=== PATIENT | female | born 1940 | race Two or more races ===

== ENCOUNTER 2022-01-29 18:16 | Inpatient (IN) | payer MEDICARE, OTHER ==
[~2022-01-29] VITALS: Ht 152.4 cm; Wt 52.6 kg
[2022-01-29] MEDS ORDERED: ACET-2154 PO (18:57)
[2022-01-29] MEDS ORDERED: ASPI81TA31 PO (18:57)
[2022-01-29] MEDS ORDERED: AMLO10TA59 PO (18:57)
[2022-01-29] MEDS ORDERED: MULT-594 PO (18:57)
[2022-01-29] MEDS ORDERED: ACET-73 PO (18:57)
[2022-01-29] MEDS ORDERED: ATOR40TA PO (18:57)
[2022-01-29] MEDS ORDERED: ASCO500C18 PO (18:57)
[2022-01-29] MEDS ORDERED: FLUO10CA29 PO (18:57)
[2022-01-29] MEDS ORDERED: METF-441 PO (18:57)
[2022-01-29] MEDS ORDERED: INSU100I26 SQ (18:57)
[2022-01-29] MEDS ORDERED: METO-356 PO (18:57)
[2022-01-29] MEDS ORDERED: CHLO25TA2 PO (18:57)
[2022-01-29] MEDS ORDERED: VITAMIN D PO (18:57)
[2022-01-29 19:51] LABS: *BILIRUBIN,URIN NEGATIVE (NEGATIVE); *BLOOD, URINE TRACE (NEGATIVE); *CLARITY,URINE SLIGHTLY CLOUDY (CLEAR); *COLOR,URINE YELLOW (YELLOW); *KETONES,URINE NEGATIVE (NEGATIVE); *UROBILINOGEN,URINE 0.2 E.U./dl (NORMAL); LEUKOCYTE ESTERASE ,URINE 1+ (NEGATIVE); NITRITE, URINE NEGATIVE (NEGATIVE); PH,URINE 5.5 (5.0-8.0); UGLUCOSE NEGATIVE (NEGATIVE)
[2022-01-29 21:36] LABS: CARBON DIOXIDE 20 mmol/L (21-32); CHLORIDE 104 mmol/L (98-107); CREATININE 1.9 mg/dL (0.6-1.3); GLUCOSE 208 mg/dL (74-106); UREA NITROGEN, BLOOD 49 mg/dL (7-18)
[2022-01-29 21:39] LABS: MEAN CORPUSCULAR HEMOGLOBIN 27.4 uug (24.7-32.8); MEAN CORPUSCULAR VOLUME 84.6 fL (75.5-95.3); PLATELET COUNT (AUTO) 251 K/uL (179-408)
[2022-01-29 21:43] LABS: ACETAMINOPHEN < 2.0 ug/mL (10-30); ALANINE AMINOTRANSFERASE 29 U/L (14-59); ALKALINE PHOSPHATASE 154 U/L (50-136); ASPARTATE AMINOTRANSFERASE 22 U/L (15-37); BILIRUBIN,DIRECT 0.1 mg/dL (0.0-0.2); BILIRUBIN,TOTAL 0.4 mg/dL (0.2-1.0); TOTAL PROTEIN, SERUM 7.7 g/dL (6.4-8.2)
[2022-01-29 21:45] LABS: ETHANOL < 3 MG/DL (0-0)
--- NOTE | 2022-01-29 23:24 | NUR ---
Spoke with Esther from crisis team.
[2022-01-29] MEDS ORDERED: NITROFURANTOIN/NITROFURAN MAC 100 MG CAPSULE PO ONE (23:30)
--- NOTE | 2022-01-30 01:25 | NUR ---
Esther from PET team here to eval patient.
--- NOTE | 2022-01-30 01:57 | NUR ---
report given to twin SINGH
[2022-01-30] MEDS ORDERED: BLOOD SUGAR DIAGNOSTIC 1 EACH STRIP VI ONE (03:45)
[2022-01-30] MEDS ORDERED: MAGNESIUM HYDROXIDE 30 ML LIQUID UDC PO PRN (03:45)
[2022-01-30 04:00] VITALS: BP 163/61
--- NOTE | 2022-01-30 04:00 | NUR ---
Pt. admitted to MHU room 140 , under care of Dr. Denis and Tyrell Schwarz, GENERAL DUTY NURSE Belongs List completed no s/s of distress breathing even and unlabored ambulates with cane
[2022-01-30 07:07] LABS: ALANINE AMINOTRANSFERASE 21 U/L (14-59); ALKALINE PHOSPHATASE 111 U/L (50-136); ASPARTATE AMINOTRANSFERASE 26 U/L (15-37); BILIRUBIN,TOTAL 0.4 mg/dL (0.2-1.0); CARBON DIOXIDE 22 mmol/L (21-32); CHLORIDE 107 mmol/L (98-107); CHOLESTEROL 129 mg/dL (<200); CREATININE 1.6 mg/dL (0.6-1.3); GLUCOSE 94 mg/dL (74-106); HDL CHOLESTEROL 70 mg/dL (40-60); POTASSIUM 3.7 mmol/L (3.5-5.1); TOTAL PROTEIN, SERUM 6.4 g/dL (6.4-8.2); TRIGLYCERIDES 62 MG/DL (30-150); UREA NITROGEN, BLOOD 43 mg/dL (7-18)
[2022-01-30 07:56] VITALS: BP 190/81
[2022-01-30] MEDS ORDERED: ACETAMINOPHEN ES 500 MG TABLET- SA PATIENTS-PAIN ONLY PO PRN (12:30)
[2022-01-30 15:20] VITALS: BP 179/75
[2022-01-30] MEDS: METFORMIN HCL 850 MG TABLET PO SCH (18:00)
[2022-01-30] MEDS: ATORVASTATIN 40 MG TABLET PO SCH (18:00)
--- NOTE | 2022-01-30 18:20 | NUR ---
GPS: Nursing Notes: Destructive Behavior to Others: Patient is awake and responding to her name, gets easily irritable when redirected by staff, poor anger management, believes that we stole her black jacket, "IF YOU CANNOT FIND IT...YOU NEED TO PAY FOR MY JACKET..", redirected during shift, loud and pressured speech at times, continue to monitor for safety, unable to formulate a viable plan for self care, continue with treatment plan.
[2022-01-30 20:10] VITALS: BP 189/78
[2022-01-30] MEDS: OLANZAPINE 2.5 MG TABLET PO SCH (20:27)
[2022-01-30] MEDS: DIVALPROEX SPRINKLE 125 MG CAP.SPRINK PO SCH (20:27)
[2022-01-30 20:38] LABS: BACTERIA,URINE MA /HPF (NONE SEEN); SQUAMOUS EPITHELIAL CELL,UR FEW /HPF (NONE SEEN)
[2022-01-30] MEDS ORDERED: AMLODIPINE 10 MG TABLET PO ONE (22:00)
--- NOTE | 2022-01-30 22:30 | NUR ---
RECEIVED PATIENT IN HER ROOM SITTING IN A CHAIR. SHE IS NOTED A/O X 1. SHE IS CALM AND PLEASANT UPON APPROACHED. SHE IS A POOR HISTORIAN. POOR INSIGHT AND JUDGMENT IS NOTED INTO HER ADMISSION TO MHU. NO AGGRESSIVE/COMBATIVE BX NOTED AT THIS TIME. MOOD IS LOW, AFFECT IS BLUNTED. SHE DENIED SI/HI/VH/AH. B/P NOTED ELEVATED 189/78MMHG. IT WAS NOTED THAT PATIENT DID NOT GET HER B/P MEDS THIS MORNING D/T HER MEDICATIONS WERE NOT RECONCILED TILL AFTERNOON. DR VEGA WAS NOTIFIED AND NEW ORDER OBTAINED TO ADMINISTER NORVASC 10MG PO ONE TIME ONLY. ORDER NOTED AND CARRIED OUT. PATIENT WAS GIVEN PO FLUIDS AND SNACKS. PATIENT IS REASSURED FOR HER SAFETY, SAFETY AND FALL PRECAUTION ARE IN PLACE. WILL CONTINUE TO MONITOR.
[2022-01-30 23:30] VITALS: BP 142/86
--- NOTE | 2022-01-30 23:30 | NUR ---
PATIENT'S BLOOD PRESSURE IS STABLE 142/82 MMHG AND HR 88. WILL CONTINUE TO MONITOR
--- NOTE | 2022-01-31 07:26 | NUR ---
patient refused blood drawn. multiple redirection given yet ineffective. will continue to monitor.
[2022-01-31 07:30] VITALS: BP 147/93
[2022-01-31] MEDS: CHLORTHALIDONE 25 MG TABLET PO SCH (08:29)
[2022-01-31] MEDS: METFORMIN HCL 850 MG TABLET PO SCH ×2 (08:30→17:05)
[2022-01-31] MEDS: ASPIRIN 81 MG TAB.CHEW PO SCH (08:31)
[2022-01-31] MEDS: METOPROLOL SUCCINATE XL 25 MG TAB.SR.24H PO SCH (08:31)
[2022-01-31] MEDS: CHOLECALCIFEROL 1,000 UNIT TABLET PO SCH (08:32)
[2022-01-31] MEDS: MULTIVITAMINS,THERAPEUTIC TABLET PO SCH (08:32)
[2022-01-31] MEDS: DIVALPROEX SPRINKLE 125 MG CAP.SPRINK PO SCH ×2 (08:32→20:18)
[2022-01-31] MEDS: ASCORBIC ACID 500 MG TABLET PO SCH (08:32)
[2022-01-31] MEDS: AMLODIPINE 10 MG TABLET PO SCH (08:32)
[2022-01-31] MEDS ORDERED: Medication Not On Formulary EA (Ascorbic Acid (Vitamin C) 1 CAP) PO SCH (09:00)
[2022-01-31] MEDS ORDERED: [UNRECOGNIZED DRUG - OTHER] PO SCH (09:00)
[2022-01-31] MEDS ORDERED: FLUOXETINE HCL 10 MG CAPSULE PO SCH (09:00)
[2022-01-31] MEDS ORDERED: Medication Not On Formulary EA (Multivitamins (Multivitamin) 1 TAB) PO SCH (09:00)
--- NOTE | 2022-01-31 15:24 | NUR ---
DIVINA Initial Discharge plan: Pt is admitted to [facility] on a 5150 hold for harm to someone else and be unable to take care of your own food clothing or alf. per pt, she would like to go back to her resident located at [facility] [place] [address] ([phone]). Pt reported to not contact her daughter. DIVINA will continue to be in touch with the facility upon pt's return at discharge. DIVINA will continue to work with pt, family and MD to ensure a safe and proper discharge plan for the pt.
--- NOTE | 2022-01-31 15:24 | NUR ---
SW Admit Source: Pt is admitted to [facility] on a 5150 hold for harm to someone else and be unable to take care of your own food clothing or snf. per pt, she would like to go back to her resident located at [facility] [place] [address] ([phone]). Pt reported to not contact her daughter. SW will continue to be in touch with the facility upon pt's return at discharge. DIVINA will continue to work with pt, family and MD to ensure a safe and proper discharge plan for the pt.
[2022-01-31 16:00] VITALS: BP 150/62
--- NOTE | 2022-01-31 16:00 | NUR ---
Received patient sleeping in her room. A/O X 2 to person, place. Pt. is withdrawn, depressed, isolative, does not interact with others. Compliant with medications. Ambulates with walker. Refuses her blood to be drawn for lab. Pt. is encourage to verbalize concerns. Fall and safety precautions implemented.
[2022-01-31] MEDS: ATORVASTATIN 40 MG TABLET PO SCH (17:04)
[2022-01-31 20:00] VITALS: BP 156/66
[2022-01-31] MEDS: OLANZAPINE 2.5 MG TABLET PO SCH (20:18)
--- NOTE | 2022-01-31 20:30 | NUR ---
RECEIVED PATIENT IN HER ROOM SITTING IN HER BED READING A BOOK. PATIENT IS NOTED A/O X 2, HER MOOD IS IRRITABLE, AFFECT IS BLUNTED. SHE IS NOTED ISOLATIVE. NO AGGRESSIVE/ COMBATIVE BX IS WAS NOTED OR REPORTED AT THIS TIME. SHE DENIED, SI/HI/VH/AH. SHE IS NOTED WITH POOR INSIGHT AND JUDGMENT TO THE REASON FOR HER ADMISSION TO MHU. SHE STATED SHE IS HERE TO SEE THE DOCTOR FOR HER "PAINS". PATIENT IS REASSURED FOR HER SAFETY. SAFETY AND FALL PRECAUTION ARE IN PLACE. V/S STABLE. SHE WAS GIVEN PO FLUIDS AND SNACKS. WILL CONTINUE TO MONITOR.
[2022-02-01] MEDS: DIVALPROEX SPRINKLE 125 MG CAP.SPRINK PO SCH ×2 (08:43→20:03)
[2022-02-01] MEDS: CHOLECALCIFEROL 1,000 UNIT TABLET PO SCH (08:43)
[2022-02-01] MEDS: ASCORBIC ACID 500 MG TABLET PO SCH (08:43)
[2022-02-01] MEDS: MULTIVITAMINS,THERAPEUTIC TABLET PO SCH (08:43)
[2022-02-01] MEDS: ASPIRIN 81 MG TAB.CHEW PO SCH (08:43)
[2022-02-01] MEDS: CHLORTHALIDONE 25 MG TABLET PO SCH (08:45)
[2022-02-01] MEDS: METFORMIN HCL 850 MG TABLET PO SCH ×2 (08:45→17:37)
[2022-02-01] MEDS: FLUOXETINE HCL 20 MG CAPSULE PO SCH (08:50)
[2022-02-01] MEDS: METOPROLOL SUCCINATE XL 25 MG TAB.SR.24H PO SCH (09:04)
[2022-02-01] MEDS: AMLODIPINE 10 MG TABLET PO SCH (09:04)
--- NOTE | 2022-02-01 09:09 | NUR ---
Firearms Report: [employer] completed and submitted a [employer] firearms report for 5150 harm someone else and be unable to take care of your own food clothing or chcf certifications. A copy of report has been placed in patient chart.
[2022-02-01 10:54] VITALS: BP 157/67
[2022-02-01 13:21] LABS: *BILIRUBIN,URIN NEGATIVE (NEGATIVE); *CLARITY,URINE SLIGHTLY CLOUDY (CLEAR); *COLOR,URINE YELLOW (YELLOW); *KETONES,URINE NEGATIVE (NEGATIVE); *UROBILINOGEN,URINE 0.2 E.U./dl (NORMAL); LEUKOCYTE ESTERASE ,URINE 2+ (NEGATIVE); NITRITE, URINE NEGATIVE (NEGATIVE); UGLUCOSE NEGATIVE (NEGATIVE)
[2022-02-01 13:26] LABS: *BLOOD, URINE TRACE (NEGATIVE)
[2022-02-01 13:32] LABS: *AMPHETAMINE, URINE NEGATIVE (NEGATIVE); *CANNABINOID, URINE NEGATIVE (NEGATIVE); *COCCAINE, URINE NEGATIVE (NEGATIVE); *OPIATE, URINE NEGATIVE (NEGATIVE); *PHENCYCLIDINE SCREEN,URINE NEGATIVE (NEGATIVE)
[2022-02-01 13:42] LABS: *URINE TOTAL PROTEIN RANDOM 129.7 mg/dL (<150/24HR); BACTERIA,URINE MANY /HPF (NONE SEEN); RBC,URINE 0-3 /HPF (0-3); SQUAMOUS EPITHELIAL CELL,UR FEW /HPF (NONE SEEN); WBC,URINE 20-50 /HPF (0-3)
--- NOTE | 2022-02-01 15:17 | NUR ---
Pt. is received sleeping in her room. A/O X 3 to person, place. Pt. is labile, refusing blood to be drawn, isolative, withdrawn, quiet. UA was collected this morning. BP was 172/71, Norvasc 10 mg and Metoprolol 25 mg were given as scheduled, BP was 157/67 after an hour, effective. Compliant with medications. Pt. ambulates with walker. Self care. Denies SI/HI AH/VH. Pt. is encourage to verbalize concerns. Fall and safety precautions implemented.
[2022-02-01] MEDS: ATORVASTATIN 40 MG TABLET PO SCH (17:36)
[2022-02-01 20:00] VITALS: BP 140/59
[2022-02-01] MEDS: OLANZAPINE 5 MG TABLET PO SCH (20:04)
[2022-02-02 07:35] VITALS: BP 117/72
[2022-02-02 07:51] LABS: HEMATOCRIT 28.3 % (31.2-41.9); MEAN CORPUSCULAR HEMOGLOBIN 28.3 uug (24.7-32.8); PLATELET COUNT (AUTO) 208 K/uL (179-408)
[2022-02-02 08:01] LABS: ALANINE AMINOTRANSFERASE 20 U/L (14-59); ALKALINE PHOSPHATASE 94 U/L (50-136); ASPARTATE AMINOTRANSFERASE 15 U/L (15-37); BILIRUBIN,TOTAL 0.5 mg/dL (0.2-1.0); CARBON DIOXIDE 23 mmol/L (21-32); CHLORIDE 109 mmol/L (98-107); CREATINE KINASE, TOTAL 37 U/L (26-192); CREATININE 1.8 mg/dL (0.6-1.3); GLUCOSE 106 mg/dL (74-106); MAGNESIUM 1.8 mg/dL (1.8-2.4); PHOSPHOROUS 4.5 mg/dL (2.5-4.9); POTASSIUM 4.6 mmol/L (3.5-5.1); TOTAL PROTEIN, SERUM 6.5 g/dL (6.4-8.2); UREA NITROGEN, BLOOD 51 mg/dL (7-18)
[2022-02-02] MEDS: ASPIRIN 81 MG TAB.CHEW PO SCH (08:40)
[2022-02-02] MEDS: FLUOXETINE HCL 20 MG CAPSULE PO SCH (08:40)
[2022-02-02] MEDS: CHOLECALCIFEROL 1,000 UNIT TABLET PO SCH (08:40)
[2022-02-02] MEDS: MULTIVITAMINS,THERAPEUTIC TABLET PO SCH (08:41)
[2022-02-02] MEDS: DIVALPROEX SPRINKLE 125 MG CAP.SPRINK PO SCH ×2 (08:41→20:28)
[2022-02-02] MEDS: ASCORBIC ACID 500 MG TABLET PO SCH (08:41)
[2022-02-02] MEDS: AMLODIPINE 10 MG TABLET PO SCH (08:42)
[2022-02-02] MEDS: METFORMIN HCL 850 MG TABLET PO SCH ×2 (08:43→17:18)
[2022-02-02] MEDS: METOPROLOL SUCCINATE XL 25 MG TAB.SR.24H PO SCH (08:43)
[2022-02-02] MEDS: CHLORTHALIDONE 25 MG TABLET PO SCH (08:43)
[2022-02-02] MEDS: GLUCERNA SHAKE 237 ML CAN PO SCH (10:04)
--- NOTE | 2022-02-02 11:00 | NUR ---
Patient's creatinine level is 1.8, Dr. Galdino Granados came to the unit and is aware of it.
--- NOTE | 2022-02-02 14:44 | NUR ---
Patient is received sleeping in her room. A/O X 3 to person, place. Pt. is calm, withdrawn, isolative, refusing blood to be drawn. Pt states "I don't give blood" "It's none of your business if I'm Jehova's witness, don't ask me again". Compliant with medications. Ambulates with walker. Denies SI/HI AH/VH. Emotional support provided. Fall and safety precautions implemented.
[2022-02-02 16:36] VITALS: BP 115/68
[2022-02-02] MEDS: ATORVASTATIN 40 MG TABLET PO SCH (17:18)
[2022-02-02 20:15] VITALS: BP 140/79
[2022-02-02] MEDS: OLANZAPINE 5 MG TABLET PO SCH (20:28)
[2022-02-03] MEDS: ASPIRIN 81 MG TAB.CHEW PO SCH (08:45)
[2022-02-03] MEDS: CHOLECALCIFEROL 1,000 UNIT TABLET PO SCH (08:45)
[2022-02-03] MEDS: DIVALPROEX SPRINKLE 125 MG CAP.SPRINK PO SCH ×2 (08:45→20:31)
[2022-02-03] MEDS: FLUOXETINE HCL 20 MG CAPSULE PO SCH (08:46)
[2022-02-03] MEDS: MULTIVITAMINS,THERAPEUTIC TABLET PO SCH (08:46)
[2022-02-03] MEDS: METFORMIN HCL 850 MG TABLET PO SCH ×2 (08:46→16:18)
[2022-02-03] MEDS: CHLORTHALIDONE 25 MG TABLET PO SCH (08:47)
[2022-02-03] MEDS: GLUCERNA SHAKE 237 ML CAN PO SCH (08:48)
[2022-02-03] MEDS: METOPROLOL SUCCINATE XL 25 MG TAB.SR.24H PO SCH (08:48)
[2022-02-03] MEDS: ASCORBIC ACID 500 MG TABLET PO SCH (08:48)
[2022-02-03] MEDS: AMLODIPINE 10 MG TABLET PO SCH (08:48)
[2022-02-03 09:16] VITALS: BP 149/60
--- NOTE | 2022-02-03 14:50 | NUR ---
GPS: Nursing Notes: Destructive Behavior To Others: Patient is awake and responding to his name, needs prompting to participate in therapeutic groups, gets easily irritable when redirected, resistant with nursing care, loud and pressured speech, redirected during shift, unable to formulate a viable plan for self care, continue to monitor for safety, continue with treatment plan.
[2022-02-03 17:07] VITALS: BP 169/74
[2022-02-03] MEDS: ATORVASTATIN 40 MG TABLET PO SCH (17:31)
[2022-02-03 20:00] VITALS: BP 148/62
[2022-02-03] MEDS: OLANZAPINE 5 MG TABLET PO SCH (20:31)
[2022-02-03] MEDS ORDERED: levoFLOXacin 250 MG TABLET ONE (21:55)
[2022-02-03] MEDS: levoFLOXacin 250 MG TABLET PO SCH (21:57)
[2022-02-04 07:47] VITALS: BP 151/58
[2022-02-04] MEDS: CHOLECALCIFEROL 1,000 UNIT TABLET PO SCH (08:48)
[2022-02-04] MEDS: ASPIRIN 81 MG TAB.CHEW PO SCH (09:45)
[2022-02-04] MEDS: ASCORBIC ACID 500 MG TABLET PO SCH (09:45)
[2022-02-04] MEDS: DIVALPROEX SPRINKLE 125 MG CAP.SPRINK PO SCH ×2 (09:45→20:00)
[2022-02-04] MEDS: CHLORTHALIDONE 25 MG TABLET PO SCH (09:46)
[2022-02-04] MEDS: FLUOXETINE HCL 20 MG CAPSULE PO SCH (09:46)
[2022-02-04] MEDS: AMLODIPINE 10 MG TABLET PO SCH (09:46)
[2022-02-04] MEDS: METOPROLOL SUCCINATE XL 25 MG TAB.SR.24H PO SCH (09:46)
[2022-02-04] MEDS: MULTIVITAMINS,THERAPEUTIC TABLET PO SCH (09:46)
[2022-02-04] MEDS: METFORMIN HCL 850 MG TABLET PO SCH ×2 (09:46→17:32)
[2022-02-04] MEDS: GLUCERNA SHAKE 237 ML CAN PO SCH (09:47)
--- NOTE | 2022-02-04 14:40 | NUR ---
GPS: Nursing Notes: Destructive Behavior To Others: Patient is awake and responding to her name, isolative in his room, gets easily irritable when redirected, needs prompting to participate in therapeutic groups, resistant with nursing care, unable to formulate a viable plan for self care, continue to monitor for safety, continue with treatment plan.
[2022-02-04 16:16] VITALS: BP 117/68
[2022-02-04] MEDS: ATORVASTATIN 40 MG TABLET PO SCH (17:32)
[2022-02-04 20:00] VITALS: BP 146/78
[2022-02-04] MEDS: levoFLOXacin 250 MG TABLET PO SCH (20:00)
[2022-02-04] MEDS: OLANZAPINE 5 MG TABLET PO SCH (20:00)
[2022-02-04] MEDS: CLONAZEPAM 0.5 MG TABLET PO PRN (21:26)
--- NOTE | 2022-02-05 06:10 | NUR ---
Patient and her room mate had a argument at the start of the shift. Each with paranoid , delusional accusations. This rfp writer moved the patient into another room for reassurance and deescalation. The patient was anxious and required a PRN . Total sleep hours were 7.30. Monitoring patients aggression at this time. Safety Stratiges are in place.
[2022-02-05 07:20] LABS: HEMATOCRIT 26.2 % (31.2-41.9); MEAN CORPUSCULAR HEMOGLOBIN 28.4 uug (24.7-32.8); MEAN CORPUSCULAR VOLUME 83.7 fL (75.5-95.3); PLATELET COUNT (AUTO) 173 K/uL (179-408)
[2022-02-05 07:27] LABS: CARBON DIOXIDE 21 mmol/L (21-32); CHLORIDE 104 mmol/L (98-107); GLUCOSE 109 mg/dL (74-106); POTASSIUM 4.5 mmol/L (3.5-5.1); UREA NITROGEN, BLOOD 70 mg/dL (7-18)
[2022-02-05 07:39] VITALS: BP 165/69
[2022-02-05 08:11] LABS: ALBUMIN 2.8 g/dL (2.9-4.4); ALPHA-1-GLOBULIN 0.2 g/dL (0.0-0.4); ALPHA-2-GLOBULIN 0.8 g/dL (0.4-1.0); BETA GLOBULIN 0.8 g/dL (0.7-1.3); GAMMA GLOBULIN 0.9 g/dL (0.4-1.8); GLOBULIN, TOTAL 2.7 g/dL (2.2-3.9); M-SPIKE Not Observed g/dL (Not Observed)
[2022-02-05] MEDS: MULTIVITAMINS,THERAPEUTIC TABLET PO SCH (08:46)
[2022-02-05] MEDS: CHOLECALCIFEROL 1,000 UNIT TABLET PO SCH (08:47)
[2022-02-05] MEDS: ASPIRIN 81 MG TAB.CHEW PO SCH (08:47)
[2022-02-05] MEDS: ASCORBIC ACID 500 MG TABLET PO SCH (08:47)
[2022-02-05] MEDS: AMLODIPINE 10 MG TABLET PO SCH (08:47)
[2022-02-05] MEDS: FLUOXETINE HCL 20 MG CAPSULE PO SCH (08:47)
[2022-02-05] MEDS: DIVALPROEX SPRINKLE 125 MG CAP.SPRINK PO SCH ×2 (08:48→20:07)
[2022-02-05] MEDS: METOPROLOL SUCCINATE XL 25 MG TAB.SR.24H PO SCH (08:56)
[2022-02-05] MEDS: METFORMIN HCL 850 MG TABLET PO SCH ×2 (08:56→17:07)
[2022-02-05] MEDS: GLUCERNA SHAKE 237 ML CAN PO SCH (09:24)
[2022-02-05] MEDS: CHLORTHALIDONE 25 MG TABLET PO SCH (09:25)
--- NOTE | 2022-02-05 13:25 | NUR ---
GPS: Nursing Notes: Destructive Behavior To Others: Patient is awake and responding to her name, gets easily irritable when redirected, paranoid behavior at times, believes that we are against her, isolative in her room, no interactions with peers, unable to formulate a viable plan for self care, resistant with nursing care at times, continue to monitor for safety, continue with treatment plan.
[2022-02-05 16:14] VITALS: BP 148/63
[2022-02-05] MEDS: ATORVASTATIN 40 MG TABLET PO SCH (17:07)
--- NOTE | 2022-02-05 17:57 | NUR ---
14 days probable cause hearing is up held.
[2022-02-05 20:05] VITALS: BP 136/64
[2022-02-05] MEDS: OLANZAPINE 5 MG TABLET PO SCH (20:06)
[2022-02-05] MEDS: levoFLOXacin 250 MG TABLET PO SCH (20:18)
[2022-02-06] MEDS: CHOLECALCIFEROL 1,000 UNIT TABLET PO SCH (09:08)
[2022-02-06] MEDS: ASPIRIN 81 MG TAB.CHEW PO SCH (09:08)
[2022-02-06] MEDS: DIVALPROEX SPRINKLE 125 MG CAP.SPRINK PO SCH ×2 (09:08→20:04)
[2022-02-06] MEDS: FLUOXETINE HCL 20 MG CAPSULE PO SCH (09:08)
[2022-02-06] MEDS: CHLORTHALIDONE 25 MG TABLET PO SCH (09:08)
[2022-02-06] MEDS: MULTIVITAMINS,THERAPEUTIC TABLET PO SCH (09:08)
[2022-02-06] MEDS: ASCORBIC ACID 500 MG TABLET PO SCH (09:08)
[2022-02-06] MEDS: METFORMIN HCL 850 MG TABLET PO SCH ×2 (09:08→17:10)
[2022-02-06] MEDS: METOPROLOL SUCCINATE XL 25 MG TAB.SR.24H PO SCH (09:09)
[2022-02-06] MEDS: AMLODIPINE 10 MG TABLET PO SCH (09:09)
[2022-02-06] MEDS: GLUCERNA SHAKE 237 ML CAN PO SCH (09:10)
[2022-02-06 09:13] VITALS: BP 156/63
--- NOTE | 2022-02-06 13:20 | NUR ---
GPS: Nursing Notes: Destructive Behavior To Others: Patient is awake and responding her name, slight paranoia, questioning: how can she taking too many pills, disorganized, isolative in her room, gets easily irritable at times, when redirected, unable to formulate a viable plan for self care, unkempt appearance, continue with treatment plan.
[2022-02-06 14:17] LABS: HEMATOCRIT 29.7 % (31.2-41.9); MEAN CORPUSCULAR HEMOGLOBIN 27.9 uug (24.7-32.8); MEAN CORPUSCULAR VOLUME 85.1 fL (75.5-95.3); PLATELET COUNT (AUTO) 231 K/uL (179-408)
[2022-02-06 14:23] LABS: ALANINE AMINOTRANSFERASE 21 U/L (14-59); ALKALINE PHOSPHATASE 151 U/L (50-136); ASPARTATE AMINOTRANSFERASE 18 U/L (15-37); BILIRUBIN,TOTAL 0.4 mg/dL (0.2-1.0); CARBON DIOXIDE 20 mmol/L (21-32); CHLORIDE 104 mmol/L (98-107); CREATININE 2.2 mg/dL (0.6-1.3); GLUCOSE 174 mg/dL (74-106); MAGNESIUM 1.8 mg/dL (1.8-2.4); PHOSPHOROUS 5.3 mg/dL (2.5-4.9); POTASSIUM 4.4 mmol/L (3.5-5.1); UREA NITROGEN, BLOOD 71 mg/dL (7-18)
[2022-02-06 16:00] VITALS: BP 142/78
--- NOTE | 2022-02-06 16:22 | NUR ---
SW Discharge Update: Luz from admissions reported Pt is accepted back to returning facility [facility] ([phone]) upon discharge. Luz stated transportation will be provided upon discharge for the pt.
[2022-02-06] MEDS: ATORVASTATIN 40 MG TABLET PO SCH (17:10)
[2022-02-06 19:54] VITALS: BP 145/66
[2022-02-06] MEDS: OLANZAPINE 5 MG TABLET PO SCH (20:04)
[2022-02-06] MEDS: levoFLOXacin 250 MG TABLET PO SCH (20:04)
[2022-02-07 07:30] VITALS: BP 163/63
[2022-02-07] MEDS: ASPIRIN 81 MG TAB.CHEW PO SCH (08:34)
[2022-02-07] MEDS: DIVALPROEX SPRINKLE 125 MG CAP.SPRINK PO SCH ×2 (08:34→20:10)
[2022-02-07] MEDS: AMLODIPINE 10 MG TABLET PO SCH (08:34)
[2022-02-07] MEDS: FLUOXETINE HCL 20 MG CAPSULE PO SCH (08:35)
[2022-02-07] MEDS: MULTIVITAMINS,THERAPEUTIC TABLET PO SCH (08:35)
[2022-02-07] MEDS: CHOLECALCIFEROL 1,000 UNIT TABLET PO SCH (08:35)
[2022-02-07] MEDS: ASCORBIC ACID 500 MG TABLET PO SCH (08:35)
[2022-02-07] MEDS: METOPROLOL SUCCINATE XL 25 MG TAB.SR.24H PO SCH (08:36)
[2022-02-07] MEDS: GLUCERNA SHAKE 237 ML CAN PO SCH (08:36)
[2022-02-07 16:00] VITALS: BP 159/67
--- NOTE | 2022-02-07 16:03 | NUR ---
Received patient awake in her room. A/O X 3 to person, place. Pt. is isolative, withdrawn, depressed, quiet. Compliant with medications and cooperative with care. Pt. ambulates with walker. Denies SI/HI AH/VH Emotional support provided. Fall and safety precautions implemented.
[2022-02-07] MEDS: MAG HYDROX/AL HYDROX/SIMETH 30 ML LIQUID UDC PO PRN (17:01)
[2022-02-07] MEDS: ATORVASTATIN 40 MG TABLET PO SCH (17:21)
[2022-02-07] MEDS: OLANZAPINE 5 MG TABLET PO SCH (20:09)
[2022-02-07] MEDS: levoFLOXacin 250 MG TABLET PO SCH (20:09)
[2022-02-07 20:46] VITALS: BP 165/64
[2022-02-08] MEDS: MAG HYDROX/AL HYDROX/SIMETH 30 ML LIQUID UDC PO PRN (01:24)
[2022-02-08] MEDS: CLONAZEPAM 0.5 MG TABLET PO PRN ×2 (01:24→21:24)
[2022-02-08 07:30] VITALS: BP 169/74
[2022-02-08] MEDS: CHOLECALCIFEROL 1,000 UNIT TABLET PO SCH (08:09)
[2022-02-08] MEDS: DIVALPROEX SPRINKLE 125 MG CAP.SPRINK PO SCH ×2 (08:09→20:00)
[2022-02-08] MEDS: FLUOXETINE HCL 20 MG CAPSULE PO SCH (08:09)
[2022-02-08] MEDS: ASPIRIN 81 MG TAB.CHEW PO SCH (08:10)
[2022-02-08] MEDS: MULTIVITAMINS,THERAPEUTIC TABLET PO SCH (08:10)
[2022-02-08] MEDS: ASCORBIC ACID 500 MG TABLET PO SCH (08:10)
[2022-02-08] MEDS: METOPROLOL SUCCINATE XL 50 MG TAB.SR.24H PO SCH (08:10)
[2022-02-08] MEDS: AMLODIPINE 10 MG TABLET PO SCH (08:11)
[2022-02-08] MEDS: GLUCERNA SHAKE 237 ML CAN PO SCH (08:12)
[2022-02-08 08:55] LABS: HEMATOCRIT 27.8 % (31.2-41.9); MEAN CORPUSCULAR HEMOGLOBIN 28.4 uug (24.7-32.8); MEAN CORPUSCULAR VOLUME 84.8 fL (75.5-95.3); PLATELET COUNT (AUTO) 221 K/uL (179-408)
[2022-02-08 09:05] LABS: ALANINE AMINOTRANSFERASE 15 U/L (14-59); ALKALINE PHOSPHATASE 110 U/L (50-136); ASPARTATE AMINOTRANSFERASE 16 U/L (15-37); BILIRUBIN,TOTAL 0.5 mg/dL (0.2-1.0); CARBON DIOXIDE 20 mmol/L (21-32); CHLORIDE 105 mmol/L (98-107); GLUCOSE 125 mg/dL (74-106); MAGNESIUM 2.1 mg/dL (1.8-2.4); PHOSPHOROUS 4.3 mg/dL (2.5-4.9); POTASSIUM 3.9 mmol/L (3.5-5.1); UREA NITROGEN, BLOOD 71 mg/dL (7-18)
[2022-02-08 10:28] LABS: *BILIRUBIN,URIN NEGATIVE (NEGATIVE); *CLARITY,URINE CLEAR (CLEAR); *COLOR,URINE YELLOW (YELLOW); *KETONES,URINE NEGATIVE (NEGATIVE); *UROBILINOGEN,URINE 0.2 E.U./dl (NORMAL); LEUKOCYTE ESTERASE ,URINE NEGATIVE (NEGATIVE); NITRITE, URINE NEGATIVE (NEGATIVE); UGLUCOSE NEGATIVE (NEGATIVE)
[2022-02-08 10:33] LABS: *BLOOD, URINE TRACE (NEGATIVE)
[2022-02-08 11:04] LABS: *CREATININE,URINE 28.2 mg/dL (30-125); *URINE TOTAL PROTEIN RANDOM 114.6 mg/dL (<150/24HR)
[2022-02-08 13:52] LABS: RBC,URINE 0-3 /HPF (0-3); WBC,URINE 0-3 /HPF (0-3)
[2022-02-08 13:53] LABS: BACTERIA,URINE NONE SEEN /HPF (NONE SEEN); SQUAMOUS EPITHELIAL CELL,UR FEW /HPF (NONE SEEN)
--- NOTE | 2022-02-08 15:36 | NUR ---
Received patient sleeping in her room. A/O X 3 to person, place, situation. Pt. is calm, cooperative, isolative, depressed. Compliant with medications. Ambulates with walker, unsteady gait. Self care. Denies SI/HI AH/VH. Emotional support provided. Fall and safety precautions implemented.
[2022-02-08 16:00] VITALS: BP 137/53
[2022-02-08] MEDS: ATORVASTATIN 40 MG TABLET PO SCH (17:15)
[2022-02-08] MEDS: ACETAMINOPHEN ES 500 MG TABLET PO PRN (19:59)
[2022-02-08 20:00] VITALS: BP 164/62
[2022-02-08] MEDS: OLANZAPINE 2.5 MG TABLET PO SCH (20:00)
[2022-02-08] MEDS: levoFLOXacin 250 MG TABLET PO SCH (20:00)
[2022-02-09] MEDS: MAG HYDROX/AL HYDROX/SIMETH 30 ML LIQUID UDC PO PRN (04:11)
[2022-02-09 07:43] VITALS: BP 157/78
[2022-02-09] MEDS: CHOLECALCIFEROL 1,000 UNIT TABLET PO SCH (08:31)
[2022-02-09] MEDS: ASCORBIC ACID 500 MG TABLET PO SCH (08:31)
[2022-02-09] MEDS: FLUOXETINE HCL 20 MG CAPSULE PO SCH (08:31)
[2022-02-09] MEDS: MULTIVITAMINS,THERAPEUTIC TABLET PO SCH (08:31)
[2022-02-09] MEDS: ASPIRIN 81 MG TAB.CHEW PO SCH (08:31)
[2022-02-09] MEDS: DIVALPROEX SPRINKLE 125 MG CAP.SPRINK PO SCH ×2 (08:31→20:12)
[2022-02-09] MEDS: METOPROLOL SUCCINATE XL 50 MG TAB.SR.24H PO SCH (08:32)
[2022-02-09] MEDS: AMLODIPINE 10 MG TABLET PO SCH (08:33)
[2022-02-09] MEDS: GLUCERNA SHAKE 237 ML CAN PO SCH (08:33)
--- NOTE | 2022-02-09 14:31 | NUR ---
Received patient sleeping in her room. A/O X 3 to person, place, environment. Pt. is quiet, calm, isolative, withdrawn, refusing blood to be drawn. Compliant with medications. Ambulates with walker. Denies SI/HI AH/VH. Emotional support provided. Fall and safety precautions implemented.
[2022-02-09] MEDS: ATORVASTATIN 40 MG TABLET PO SCH (17:18)
[2022-02-09 17:24] VITALS: BP 111/72
[2022-02-09] MEDS: OLANZAPINE 2.5 MG TABLET PO SCH (20:12)
[2022-02-09 20:14] VITALS: BP 165/68
[2022-02-09] MEDS: TEMAZEPAM 7.5 MG CAPSULE PO PRN (21:32)
[2022-02-09] MEDS: ACETAMINOPHEN ES 500 MG TABLET PO PRN (21:33)
[2022-02-09] MEDS: IPRATROPIUM BROMIDE 0.5 MG/2.5 ML NEBU NEB PRN (23:04)
[2022-02-09] MEDS: ALBUTEROL SULFATE 1.25 MG/3 ML NEBU NEB PRN (23:05)
[2022-02-10 07:30] VITALS: BP 154/81
[2022-02-10] MEDS: CHOLECALCIFEROL 1,000 UNIT TABLET PO SCH (08:22)
[2022-02-10] MEDS: ASPIRIN 81 MG TAB.CHEW PO SCH (08:22)
[2022-02-10] MEDS: ASCORBIC ACID 500 MG TABLET PO SCH (08:22)
[2022-02-10] MEDS: AMLODIPINE 10 MG TABLET PO SCH (08:23)
[2022-02-10] MEDS: MULTIVITAMINS,THERAPEUTIC TABLET PO SCH (08:28)
[2022-02-10] MEDS: DIVALPROEX SPRINKLE 125 MG CAP.SPRINK PO SCH ×2 (08:28→21:12)
[2022-02-10] MEDS: METOPROLOL SUCCINATE XL 50 MG TAB.SR.24H PO SCH (08:28)
[2022-02-10] MEDS: GLUCERNA SHAKE 237 ML CAN PO SCH (08:31)
[2022-02-10] MEDS: FLUOXETINE HCL 20 MG CAPSULE PO SCH (08:33)
[2022-02-10 10:59] LABS: HEMATOCRIT 26.8 % (31.2-41.9); MEAN CORPUSCULAR HEMOGLOBIN 27.5 uug (24.7-32.8); MEAN CORPUSCULAR VOLUME 85.3 fL (75.5-95.3); PLATELET COUNT (AUTO) 225 K/uL (179-408)
[2022-02-10 11:17] LABS: CARBON DIOXIDE 22 mmol/L (21-32); CHLORIDE 100 mmol/L (98-107); GLUCOSE 195 mg/dL (74-106); UREA NITROGEN, BLOOD 72 mg/dL (7-18)
--- NOTE | 2022-02-10 14:10 | NUR ---
Patient in bed, up for ADLs and showered, blood draw done today, guarded, isolative, compliance with medications. No s/s of distress or respiratory distress. will continue to monitor.
--- NOTE | 2022-02-10 15:25 | NUR ---
Patient ambulated to dayroom with WWC, became short of breath, RT called for treatment.
[2022-02-10] MEDS: ALBUTEROL SULFATE 1.25 MG/3 ML NEBU NEB PRN (15:31)
[2022-02-10] MEDS: IPRATROPIUM BROMIDE 0.5 MG/2.5 ML NEBU NEB PRN (15:31)
[2022-02-10 16:00] VITALS: BP 153/60
--- NOTE | 2022-02-10 16:08 | NUR ---
Breathing Treatment given by RT, patient breathing better and unlabored, patient denies any history of smoking or History of any lung problems. ambulated back to her room with no problems, will continue to monitor.
[2022-02-10] MEDS: ATORVASTATIN 40 MG TABLET PO SCH (17:41)
[2022-02-10 20:00] VITALS: BP 147/89
[2022-02-10] MEDS: OLANZAPINE 2.5 MG TABLET PO SCH (21:12)
[2022-02-10] MEDS: TEMAZEPAM 7.5 MG CAPSULE PO PRN (21:12)
[2022-02-10] MEDS: ACETAMINOPHEN 325 MG TABLET PO PRN (21:57)
[2022-02-11 08:09] VITALS: BP 157/89
[2022-02-11] MEDS: ASCORBIC ACID 500 MG TABLET PO SCH (08:24)
[2022-02-11] MEDS: FLUOXETINE HCL 20 MG CAPSULE PO SCH (08:24)
[2022-02-11] MEDS: MULTIVITAMINS,THERAPEUTIC TABLET PO SCH (08:24)
[2022-02-11] MEDS: DIVALPROEX SPRINKLE 125 MG CAP.SPRINK PO SCH ×2 (08:24→20:47)
[2022-02-11] MEDS: ASPIRIN 81 MG TAB.CHEW PO SCH (08:24)
[2022-02-11] MEDS: CHOLECALCIFEROL 1,000 UNIT TABLET PO SCH (08:24)
[2022-02-11] MEDS: AMLODIPINE 10 MG TABLET PO SCH (08:25)
[2022-02-11] MEDS: METOPROLOL SUCCINATE XL 50 MG TAB.SR.24H PO SCH (08:25)
[2022-02-11] MEDS: GLUCERNA SHAKE 237 ML CAN PO SCH (08:28)
[2022-02-11] MEDS: hydrALAZINE HCL 25 MG TABLET PO SCH ×2 (13:25→21:03)
[2022-02-11] MEDS: ACETAMINOPHEN 325 MG TABLET PO PRN (15:25)
--- NOTE | 2022-02-11 15:41 | NUR ---
Received patient sleeping in her room. A/O X 2 to person, place. Pt. is calm, cooperative with care, isolative, passive, pressured, compliant with medications. Tylenol 650 mg was given at 15:25 for headache, will be monitored for effectiveness. Ambulates with walker. Self care. Denies SI/HI AH/VH. Active listening provided. Fall and safety precautions implemented.
[2022-02-11 16:58] VITALS: BP 167/80
[2022-02-11] MEDS: ATORVASTATIN 40 MG TABLET PO SCH (17:07)
[2022-02-11 20:03] VITALS: BP 148/78
[2022-02-11] MEDS: OLANZAPINE 2.5 MG TABLET PO SCH (20:46)
[2022-02-12] MEDS: hydrALAZINE HCL 25 MG TABLET PO SCH ×3 (06:06→21:09)
[2022-02-12 07:51] VITALS: BP 169/79
[2022-02-12] MEDS: CHOLECALCIFEROL 1,000 UNIT TABLET PO SCH (08:25)
[2022-02-12] MEDS: FLUOXETINE HCL 20 MG CAPSULE PO SCH (08:25)
[2022-02-12] MEDS: ASPIRIN 81 MG TAB.CHEW PO SCH (08:25)
[2022-02-12] MEDS: DIVALPROEX SPRINKLE 125 MG CAP.SPRINK PO SCH ×2 (08:25→20:43)
[2022-02-12] MEDS: AMLODIPINE 10 MG TABLET PO SCH (08:26)
[2022-02-12] MEDS: MULTIVITAMINS,THERAPEUTIC TABLET PO SCH (08:26)
[2022-02-12] MEDS: METOPROLOL SUCCINATE XL 50 MG TAB.SR.24H PO SCH (08:27)
[2022-02-12] MEDS: GLUCERNA SHAKE 237 ML CAN PO SCH (08:46)
[2022-02-12] MEDS: ASCORBIC ACID 500 MG TABLET PO SCH (09:14)
--- NOTE | 2022-02-12 15:23 | NUR ---
Received patient awake in her room. A/O X 2 - 3 to person, environment. Pt. is cooperative, withdrawn, isolative. Today patient was next to the exit door trying to leave the unit twice. Pt. is compliant with medications. Ambulates with walker. Requires minimal assistance with ADL. Denies SI/Hi AH/VH. Pt. is encourage to vent feelings and emotions. Fall and safety precautions implemented.
[2022-02-12 16:07] VITALS: BP 114/72
[2022-02-12] MEDS: ATORVASTATIN 40 MG TABLET PO SCH (17:13)
[2022-02-12 20:08] VITALS: BP 141/70
[2022-02-12] MEDS: OLANZAPINE 2.5 MG TABLET PO SCH (20:43)
--- NOTE | 2022-02-12 21:39 | NUR ---
AT AROUND 2100-2114H, THE PATIENT WAS AT THE ACTIVITY ROOM WITH OTHER PATIENTS FOR A SNACK, SHE IS AMBULATORY WITH A WALKER. UNAWARE OF SAFETY MEASURES, SHE WALKS WITH WALKER AND WAS HOLDING ONTO HER SANDWICH AT THE SAME TIME. SHE TRIP AND HOLD ONTO THE RAILS BY THE HALLWAY AND SAT ON THE FLOOR. ASSISTED THE PATIENT BACK TO HER ROOM, WALKS WITHOUT DIFFICULTY, BODY ASSESSMENT DONE, NO INJURY SUSTAINED, SKIN INTACT, NO SKIN TEAR IDENTIFIED. PATIENT IS ABLE TO MOVE BILATERAL UPPER AND LOWER EXTREMITIES WITHOUT PAIN AND DISCOMFORT. SHE REPORTED PAIN ON HER LEFT FOREHEAD, OFFERED ICE PACK FOR COMFORT, PATIENT STATED SHE IS OKAY AFTER 10-15MINS. AT 2127H HAND TWISTER MADE AWARE. AT 2131H DR STEVEN MADE AWARE AND ORDERED HEAD CT SCAN W/O CONTRAST. AT 2135H DR NAJERA MADE AWARE, AGREED TO THE PLAN, AND ALSO STATED TO INFORM COMMERCIAL ASSISTANT IN THE MORNING. FAMILY MADE AWARE, NO ANSWER, LEFT A VOICEMAIL. WILL CONTINUE TO MONITOR THE PATIENT AND FREQUENT CHECKS WILL BE ENFORCED, SAFETY MEASURES WILL BE MAINTAINED, AND WILL CONTINUE TO REINFORCE SAFETY.
--- NOTE | 2022-02-12 22:07 | NUR ---
PRISCA FROM RADIOLOGY DATA ENTRY SUPERVISOR THE PATIENT VIA WHEELCHAIR FOR THE CT SCAN ORDER. WILL CONTINUE TO MONITOR ONCE PATIENT IS BACK. Addendum: 02/12/22 at 2305 by MARCH Beti MAYFIELD RN PATIENT BACK AFTER 10-15MINS, IN HER BED, DENIES ANY DISCOMFORT. WILL CONTINUE TO MONITOR. AWAITING RESULT OF CT.
--- NOTE | 2022-02-13 01:00 | NUR ---
AT 2100, THE PATIENT WAS IN THE DAY ROOM WITH OTHER PATIENTS FOR A SNACK. PATIENT IS AMBULATORY WITH A WALKER. UNAWARE OF SAFETY MEASURES, SHE WALKS WITH WALKER AND WAS HOLDING ONTO HER SANDWICH AT THE SAME TIME. SHE TRIPPED AND HELD ONTO THE RAILS BY THE HALLWAY AND SAT ON THE FLOOR. 2114 ASSISTED THE PATIENT BACK TO HER ROOM. PATIENT WALKS WITHOUT DIFFICULTY, BODY ASSESSMENT DONE, NO INJURY SUSTAINED, SKIN INTACT, NO SKIN TEAR IDENTIFIED. PATIENT IS ABLE TO MOVE BILATERAL UPPER AND LOWER EXTREMITIES WITHOUT PAIN AND DISCOMFORT. SHE REPORTED PAIN ON HER LEFT FOREHEAD 6/10, OFFERED ICE PACK FOR COMFORT. 2124 PATIENT STATED SHE IS OKAY AFTER 10-15MINS. 2127 STACK MATCHER WAS MADE AWARE OF THE INCIDENT. 2131 DR STEVEN MADE AWARE AND ORDERED HEAD CT SCAN W/O CONTRAST. 6H DR NAJERA MADE AWARE, AGREED TO THE PLAN, AND ALSO STATED TO INFORM MOLDING PLASTERER IN THE MORNING. FAMILY MADE AWARE, NO ANSWER, LEFT A VOICEMAIL. 2299 WILL CONTINUE TO MONITOR THE PATIENT AND FREQUENT CHECKS WILL BE ENFORCED, SAFETY MEASURES WILL BE MAINTAINED, AND WILL CONTINUE
--- NOTE | 2022-02-13 02:18 | NUR ---
VISUAL CHECKS AND ROUNDS MADE, PATIENT IS COMFORTABLY SLEEPING. WILL CONTINUE TO MONITOR.
[2022-02-13] MEDS: hydrALAZINE HCL 25 MG TABLET PO SCH ×3 (06:06→21:09)
--- NOTE | 2022-02-13 06:19 | NUR ---
PATIENT IN ROOM AT THIS TIME WITH NO SIGNS OR SYMPTOMS OF DISTRESS OR PAIN . WILL ENDORSE TO MORNING NURSE.
--- NOTE | 2022-02-13 06:33 | NUR ---
AWAITING CT SCAN RESULT, WILL ENDORSE TO THE NEXT SHIFT. NO SIGNS/SYMPTOMS OF ACUTE DISTRESS IDENTIFIED. NO PAIN NOTED. DENIES DISCOMFORT. AM MEDS GIVEN ORDERED. ENDORSED TO THE NEXT SHIFT FOR CONTINUITY OF CARE.
[2022-02-13 08:00] VITALS: BP 118/67
[2022-02-13] MEDS: DIVALPROEX SPRINKLE 125 MG CAP.SPRINK PO SCH ×2 (09:03→20:22)
[2022-02-13] MEDS: ASCORBIC ACID 500 MG TABLET PO SCH (09:03)
[2022-02-13] MEDS: CHOLECALCIFEROL 1,000 UNIT TABLET PO SCH (09:03)
[2022-02-13] MEDS: MULTIVITAMINS,THERAPEUTIC TABLET PO SCH (09:03)
[2022-02-13] MEDS: FLUOXETINE HCL 20 MG CAPSULE PO SCH (09:04)
[2022-02-13] MEDS: METOPROLOL SUCCINATE XL 50 MG TAB.SR.24H PO SCH (09:04)
[2022-02-13] MEDS: AMLODIPINE 10 MG TABLET PO SCH (09:04)
[2022-02-13] MEDS: GLUCERNA SHAKE 237 ML CAN PO SCH (09:04)
[2022-02-13] MEDS: ASPIRIN 81 MG TAB.CHEW PO SCH (09:05)
--- NOTE | 2022-02-13 10:03 | NUR ---
GPS: PT RECEIVED TODAY IN THE ROOM AWAKE AND VERBALLY RESPONSIVE. DENIES ANY PAIN OR DISCOMFORT. PT ON MONITOR FOR FALL RISK AFTER PT HAD A FALL INCIDENT. PT ENCOURAGED TO USE WALKER DURING AMBULATION. PT STAYS IN HER ROOM. ENCOURAGED TO JOIN GROUP ACTIVITIES. NO AGITATION AT THIS TIME.
[2022-02-13 14:34] LABS: HEMATOCRIT 25.3 % (31.2-41.9); MEAN CORPUSCULAR HEMOGLOBIN 27.8 uug (24.7-32.8); MEAN CORPUSCULAR VOLUME 83.2 fL (75.5-95.3); PLATELET COUNT (AUTO) 232 K/uL (179-408)
[2022-02-13 14:51] LABS: IRON, SERUM 29 ug/dL (50-175)
[2022-02-13 15:26] LABS: ALANINE AMINOTRANSFERASE 24 U/L (14-59); ALKALINE PHOSPHATASE 107 U/L (50-136); ASPARTATE AMINOTRANSFERASE 23 U/L (15-37); BILIRUBIN,TOTAL 0.5 mg/dL (0.2-1.0); CARBON DIOXIDE 21 mmol/L (21-32); CHLORIDE 97 mmol/L (98-107); CREATININE 2.1 mg/dL (0.6-1.3); FERRITIN 161 ng/mL (8-252); GLUCOSE 289 mg/dL (74-106); MAGNESIUM 2.5 mg/dL (1.8-2.4); PHOSPHOROUS 5.9 mg/dL (2.5-4.9); POTASSIUM 4.4 mmol/L (3.5-5.1); TOTAL PROTEIN, SERUM 6.2 g/dL (6.4-8.2); UREA NITROGEN, BLOOD 76 mg/dL (7-18)
[2022-02-13 16:44] VITALS: BP 156/58
[2022-02-13] MEDS: ATORVASTATIN 40 MG TABLET PO SCH (17:17)
[2022-02-13 20:04] VITALS: BP 136/61
[2022-02-13] MEDS: OLANZAPINE 2.5 MG TABLET PO SCH (20:22)
[2022-02-13] MEDS: TEMAZEPAM 7.5 MG CAPSULE PO PRN (21:16)
[2022-02-13] MEDS: ALBUTEROL SULFATE 1.25 MG/3 ML NEBU NEB PRN (21:36)
[2022-02-13] MEDS: IPRATROPIUM BROMIDE 0.5 MG/2.5 ML NEBU NEB PRN (21:36)
[2022-02-14] MEDS: CLONAZEPAM 0.5 MG TABLET PO PRN ×2 (01:18→08:24)
[2022-02-14] MEDS: IPRATROPIUM BROMIDE 0.5 MG/2.5 ML NEBU NEB PRN (04:57)
[2022-02-14] MEDS: ALBUTEROL SULFATE 1.25 MG/3 ML NEBU NEB PRN (04:57)
[2022-02-14] MEDS: hydrALAZINE HCL 25 MG TABLET PO SCH (05:25)
[2022-02-14] MEDS: MULTIVITAMINS,THERAPEUTIC TABLET PO SCH (08:24)
[2022-02-14] MEDS: ASCORBIC ACID 500 MG TABLET PO SCH (08:24)
[2022-02-14] MEDS: CHOLECALCIFEROL 1,000 UNIT TABLET PO SCH (08:24)
[2022-02-14] MEDS: ASPIRIN 81 MG TAB.CHEW PO SCH (08:24)
[2022-02-14] MEDS: DIVALPROEX SPRINKLE 125 MG CAP.SPRINK PO SCH (08:24)
[2022-02-14] MEDS: GLUCERNA SHAKE 237 ML CAN PO SCH (08:25)
--- NOTE | 2022-02-14 08:56 | NUR ---
DIVINA Discharge Note: Pt will be discharged to [facility] )[phone]) [address] , [place] [address] via SNF transportation at 11AM. DIVINA spoke with admin coordinator, Luz at the facility who states they are ready to accept the patient today. Pt is aware and agreeable with discharge plans. Pt stated to staff to not contact family regarding pt information. Pt is alert and oriented x2(name and location), is unable to plan for self-care at this time; however, is willing to accept care at SNF. Pt denies any suicidal or homicidal ideation. Pt will follow-up at the facility with Psychiatrist, Dr. Wyatt and Ekg/Ecg Technician, Dr. Hayes. Pt presents with calm mood and congruent affect. PHARMACY: [facility] ([phone]) [address], [place] [address].
[2022-02-14] MEDS ORDERED: FLUOXETINE HCL 20 MG CAPSULE PO SCH (09:00)
[2022-02-14] MEDS: AMLODIPINE 10 MG TABLET PO SCH (09:08)
[2022-02-14] MEDS: METOPROLOL SUCCINATE XL 50 MG TAB.SR.24H PO SCH (09:09)
--- NOTE | 2022-02-14 09:35 | NUR ---
GPS: PT RECEIVED TODAY PACING THE HALLWAY RUDDY ANXIOUS AND WANTS TO GO OUT OF THE FACILITY WAITING AT THE EXIT DOOR STATING " I WANNA GO TO THE KIDS OUTSIDE". PT RE-ORIENTED TO PLACE AND REALITY AND REDIRECTED. PT WENT TO ROOM HAD A BREAKFAST AND ALLOWED ROCK CUTTER TO TAKE VITAL SIGNS AND GIVE MEDS. PT TOLERATED WELL. DENIES PAIN OR DISCOMFORT, PT WILL BE DISCHARGE TODAY TO [facility].
[2022-02-14 10:30] VITALS: BP 151/70
--- NOTE | 2022-02-14 12:15 | NUR ---
GPS: PT WAS DISCHARGED, CONVEYOR ATTENDANT BY SNF BREAKER UNIT ASSEMBLER. DENIES ANY PAIN OR DISCOMFORT. PT ALERT AND VERBALLY RESPONSIVE. COMPLIANT WITH CARE AND MEDS. REPORTED TO FRANCISCO SOLOMON AT [facility]. ALL BELONGINGS GIVEN INCLUDING THE DEBIT CARD AND CANE TO THE BREAKER UNIT ASSEMBLER. MD AND PSYCHIATRIST MADE AWARE.
== END 2022-02-14 12:30 | DRG 881 ==
LOC: ER 18:18 → GPS 01-30 03:11
PROVIDERS: ADMIT Psychiatry & Neurology Psychiatry; ATTEND Family Medicine
DX: F32.9 Major depressive disorder, single episode, unspecified (principal); N18.9 Chronic kidney disease, unspecified; N17.0 Acute kidney failure with tubular necrosis; E11.65 Type 2 diabetes mellitus with hyperglycemia; G93.41 Metabolic encephalopathy; N39.0 Urinary tract infection, site not specified; F03.91 Unspecified dementia, unspecified severity, with behavioral disturbance; E44.0 Moderate protein-calorie malnutrition; D68.59 Other primary thrombophilia; E78.5 Hyperlipidemia, unspecified; B96.1 Klebsiella pneumoniae [K. pneumoniae] as the cause of diseases classified elsewhere; I13.10 Hypertensive heart and chronic kidney disease without heart failure, with stage 1 through stage 4 chronic kidney disease, or unspecified chronic kidney disease; E11.22 Type 2 diabetes mellitus with diabetic chronic kidney disease; Z59.01 Sheltered homelessness; D63.8 Anemia in other chronic diseases classified elsewhere; D50.9 Iron deficiency anemia, unspecified; Z86.73 Personal history of transient ischemic attack (TIA), and cerebral infarction without residual deficits; Z79.84 Long term (current) use of oral hypoglycemic drugs; Z79.4 Long term (current) use of insulin; Z79.82 Long term (current) use of aspirin; F94.0 Selective mutism; Z68.22 Body mass index [BMI] 22.0-22.9, adult; Z74.09 Other reduced mobility
CPT/HCPCS: 36415; 70450; 80164; 83550; 83735; 83970; 84100; 84155; 84156; 84165; 84300; 85025; 87077; 87086; 94640; 94664; 94760; 97161; A4663; A9150; G0480; J3590